=== PATIENT | female | born 1970 | race Caucasian/White ===

== ENCOUNTER 2019-02-28 22:05 | Inpatient (IN) | payer OTHER ==
[~2019-02-28] VITALS: Ht 152.4 cm; Wt 79.4 kg
[2019-02-28 22:06] VITALS: BP 176/107
[2019-02-28 22:42] LABS: ABSOLUTE BASOPHILS 0.1 thou/uL (0.0-0.2); ABSOLUTE EOSINOPHILS 0.2 thou/uL (0.0-0.7); ABSOLUTE MONOCYTES 0.9 thou/uL (0.0-1.2); ABSOLUTE NEUTROPHILS 4.8 thou/uL (1.6-8.1); BASOPHILS 0.8 %; EOSINOPHILS 2.7 %; HEMOGLOBIN 13.6 gm/dL (12.0-15.0); LYMPHOCYTES 25.4 %; MCH 30.9 pg (26.0-34.0); MCV 88.2 fL (80.0-100.0); MONOCYTES 10.8 %; NUCLEATED RBCS 0 /100WBC; PLATELET COUNT* 299 thou/uL (150-400); POLYS 60.3 %; RBC 4.42 mil/uL (4.20-5.00); RDW-CV 12.9 % (10.5-14.5)
[2019-02-28 22:52] LABS: PROTIME 9.8 Seconds (9.20-11.50)
[2019-02-28 22:53] LABS: ALBUMIN 3.9 g/dL (3.4-5.0); TOTAL BILIRUBIN 0.1 mg/dL (<0.1-1.0); TOTAL PROTEIN 7.3 g/dL (6.4-8.2)
[2019-03-01 03:02] VITALS: BP 131/67
[2019-03-01 03:15] VITALS: BP 152/75
--- NOTE | 2019-03-01 03:15 | NUR ---
PT ADMITTED TO FLOOR ACCOMPANIED BY ER STAFF AND FAMILY WITH BELONGINGS. ORIENTED TO ROOM AND CALL LITE. HISTORY OBTAINED AND ASSESSMENT PERFORMED, SEE ADMIT NOTES. PT DENIES PAIN OR DIZZINESS AT THIS TIME, STATES SHE HAS A SMALL AMOUNT OF HEAD PRESSURE. 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 RAC SL. DTR AT BEDSIDE. WILL CONTINUE TO MONITOR AND PROVIDE CARES NEEDED. BED ALARM ON FOR SAFETY AND CALL LITE IN EASY REACH. PT AGREEABLE TO PLAN OF CARE.
[2019-03-01 08:00] VITALS: BP 154/80
[2019-03-01 10:28] LABS: CALCIUM 8.3 mg/dL (8.5-10.1); CREATININE 0.8 mg/dL (0.6-1.3); POTASSIUM 3.9 mmol/L (3.5-5.1)
[2019-03-01] MEDS ORDERED: DEPAKOTE ER250 MG PO (13:00)
[2019-03-01] MEDS ORDERED: ANTIVERT25 MG PO (13:00)
--- NOTE | 2019-03-01 14:45 | NUR ---
DISCUSSED MRI RESULTS WITH DR HODGES AND DR GONZALEZ, ORDERS RECEIVED. DISCUSSED WITH PT THAT MRI REPORT WAS ABNORMAL AND DRS WOULD LIKE HER TO HAVE LUMBAR PUNCTURE IN AM
[2019-03-01 16:23] VITALS: BP 110/73; BP 115/57
--- NOTE | 2019-03-01 17:55 | NUR ---
PT RESTING IN BED THROUGHOUT SHIFT. PT DENIES CARROLL OR DIZZINESS. MRI THIS AFTERNOON. FAMILY AT BS AND UPDATED ON PLAN OF CARE
[2019-03-01 20:00] VITALS: BP 134/88
[2019-03-02 07:32] VITALS: BP 143/86
--- NOTE | 2019-03-02 11:31 | EKG ---
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
--- NOTE | 2019-03-02 13:11 | NUR ---
Pt lives at home with son. Pt was not in need of assistive device for mobility prior to hospitalization. SW/CM to remain available to assist with safe dc planning if needs arise.
--- NOTE | 2019-03-02 14:29 | 2DMMODE ---
[place] [address] 2 D/M-MODE ECHOCARDIOGRAM Name: JANEL GALLEGOS Room: [address] IN [facility]#: [id number] Admission: 03/01/19 Attend Phys: Michael Vieira, Discharge: Date of : 72 Date of Service: 03/02/19 1428 Report #: [id number] THIS REPORT FOR: //name// APPROVED REPORT Study performed: 03/02/2019 11:05:51 EXAM: Comprehensive 2D, Doppler, and color-flow Echocardiogram Patient Location: In-Patient Room #: [facility] Status: routine BSA: 1.65 HR: 62 bpm BP: 143/86 mmHg Rhythm: NSR Other Information Study Quality: Excellent Indications Dizziness, headache, Abnormal MRI 2D Dimensions IVSd: 11.33 (7-11mm) LVOT Diam: 19.16 (18-24mm) LVDd: 36.21 mm PWd: 9.75 (7-11mm) Ascending Ao: 27.44 (22-36mm) LVDs: 18.52 (25-40mm) Aortic Root: 26.83 mm Volumes Left Atrial Volume (Systole) LA ESV Index: 21.00 mL/m2 Aortic Valve AoV Peak Merrick.: 1.39 m/s AO Peak Gr.: 7.70 mmHg LVOT Max P.75 mmHg AO Mean Gr.: 3.72 mmHg LVOT Mean P.64 mmHg LVOT Max V: 1.48 m/s AO V2 VTI: 25.10 cm LVOT Mean V: 0.85 m/s BERTRAND (VTI): 3.49 cm2 LVOT V1 VTI: 30.39 cm Mitral Valve E/A Ratio: 1.19 MV Decel. Time: 192.69 ms MV E Max Merrick.: 1.03 m/[place] [id number] 2 D/M-MODE ECHOCARDIOGRAM Name: JANEL GALLEGOS Room: [address] IN [facility]#: [id number] Admission: 03/01/19 Attend Phys: Michael Vieira, Discharge: Date of : 72 Date of Service: 03/02/19 1428 Report #: [id number] MV PHT: 55.88 ms MVA (PHT): 3.94 cm2 TDI E/Lateral E': 8.58 E/Medial E': 10.30 Medial E' Merrick.: 0.10 m/s Lateral E' Merrick.: 0.12 m/s Pulmonary Valve PV Peak Merrick.: 1.67 m/s PV Peak Gr.: 11.13 mmHg Left Ventricle The left ventricle is normal size. There is normal LV segmental wall motion. There is normal left ventricular wall thickness. Left ventricular systolic function is normal. The left ventricular ejection fraction is within the normal range. LVEF is 65-70%. The left ventricular diastolic function is normal. Right Ventricle The right ventricle is normal size. The right ventricular systolic function is normal. Atria The left atrium size is normal. The right atrium size is normal. Aortic Valve The aortic valve is normal in structure. No aortic regurgitation is present. There is no aortic valvular stenosis. Mitral Valve The mitral valve is normal in structure. Trace mitral regurgitation. No evidence of mitral valve stenosis. Tricuspid Valve The tricuspid valve is normal in structure. Trace tricuspid regurgitation. Unable to assess PA pressure. Pulmonic Valve The pulmonary valve is normal in structure. Trace pulmonic regurgitation. Great Vessels The aortic root is normal in size. IVC is normal in size and collapses >50% [place] [address] 2 D/M-MODE ECHOCARDIOGRAM Name: JANEL GALLEGOS Room: [address]#: [id number] Admission: 03/01/19 Attend Phys: Michael Vieira, Discharge: Date of : 72 Date of Service: 03/02/19 1428 Report #: [id number] Pericardium There is no pericardial effusion. <Conclusion> Left ventricular systolic function is normal. The left ventricular ejection fraction is within the normal range. <ELECTRONICALLY SIGNED> By: Pancho Brothers MD, FACC 03/02/19 1428 1428 1428 Pancho Brothers MD, FACC /INF
[2019-03-02 14:46] VITALS: BP 143/86
[2019-03-02 16:00] VITALS: BP 132/74
[2019-03-02 17:55] VITALS: BP 143/86
--- NOTE | 2019-03-02 18:36 | NUR ---
PT DC HOME TONIGHT. PT HAS FOLLOW UP TOMORROW WITH ENT DR WAYNE AT 10:00 AM. PT GIVEN DC INSTRUCTIONS AND VERBALIZES UNDERSTANDING. PT WILL CALL [facility] OFFICE TO SCHEDULE FOLLOW UP.
[2019-03-02 21:05] LABS: COMPLEMENT-C4 25 mg/dL (14-44)
[2019-03-04 10:10] LABS: ANA INTERPRETATION Negative (Negative)
== END 2019-03-02 19:56 | disposition home or self-care (01) | DRG 103 ==
LOC: M.ERS 22:05 → M.TBA-ER 03-01 02:28 → M.ORTHSURG 03-01 02:28
PROVIDERS: Emergency Medicine; Family Medicine; Internal Medicine; ADMIT Internal Medicine
DX: G43.909 Migraine, unspecified, not intractable, without status migrainosus (principal); H91.92 Unspecified hearing loss, left ear; Z88.6 Allergy status to analgesic agent; Z79.899 Other long term (current) drug therapy; Z87.828 Personal history of other (healed) physical injury and trauma